=== PATIENT | female | born 1995 | race Caucasian/White ===

== ENCOUNTER 2017-01-26 07:22 | Day surgery (SDC) | payer MEDICAID, OTHER ==
[2017-01-25 10:54] VITALS: BMI 26.2
[~2017-01-26] VITALS: Ht 157.5 cm; Wt 70.0 kg
[2017-01-26] VITALS (14 sets, daily range): BP systolic 8–119; BP diastolic 60–77; PULSE 20–80; RESP 12–20; Ht 157.5 cm; Wt 70.0 kg
[2017-01-26] MEDS ORDERED: INDOMETHACIN 50 MG SUPP PR ONE (08:26)
[2017-01-26] MEDS ORDERED: IOHEXOL 300MG/ML 30 ML BTL ONE (08:26)
[2017-01-26 08:41] LABS: ADD SCAN DIFF NO
[2017-01-26] MEDS ORDERED: MIDAZOLAM 1 MG/ML 2 ML INJ ONE (08:44)
[2017-01-26] MEDS ORDERED: LIDOCAINE 2% (SDV) 5 ML INJ ONE (08:44)
[2017-01-26] MEDS ORDERED: SUCCINYLCHOLINE CHLORIDE 100 MG/5 ML SYG IV ONE (08:44)
[2017-01-26] MEDS ORDERED: FENTAnyl 50 MCG/ML VIAL ONE (08:44)
[2017-01-26] MEDS ORDERED: PROPOFOL 20 ML ONE (08:44)
[2017-01-26 08:45] LABS: BASOPHILS % 0.4 % (0.0-2.0); EOSINOPHILS # 0.2 10^3/ul (0.0-0.5); EOSINOPHILS % 2.5 % (0.0-7.0); HEMATOCRIT 38.5 % (37.0-47.0); HEMOGLOBIN 12.5 g/dl (12.0-16.0); LYMPHOCYTES # 2.4 10^3/ul (0.8-2.9); LYMPHOCYTES % 32.1 % (15.0-51.0); MEAN CORPUSCULAR HEMOGLOBIN 29.6 pg (29.0-33.0); MEAN CORPUSCULAR HGB CONC 32.5 g/dl (32.0-37.0); MONOCYTE # 0.6 10^3/ul (0.3-0.9); MONOCYTES % 7.4 % (0.0-11.0); NEUTROPHIL # 4.3 10^3/ul (1.6-7.5); NEUTROPHILS % 57.3 % (39.0-77.0); PLATELET COUNT 297 10^3/UL (140-415); RED BLOOD COUNT 4.23 10^6/ul (4.20-5.40); RED CELL DISTRIBUTION WIDTH 13.1 % (11.5-14.5); WHITE BLOOD COUNT 7.6 10^3/ul (4.8-10.8)
[2017-01-26 09:11] LABS: ALBUMIN 4.5 g/dl (3.3-4.9); ALBUMIN/GLOBULIN RATIO 1.55; BILIRUBIN,INDIRECT 0.2 mg/dl (0-1.1); BILIRUBIN,TOTAL 0.2 mg/dl (0.2-1.3); INR 0.96; PROTIME 12.8 Sec (12.2-14.2); TOTAL PROTEIN 7.4 g/dl (6.1-8.1)
[2017-01-26 09:12] LABS: PARTIAL THROMBOPLASTIN TIME 30.1 Sec (25.0-35.0)
[2017-01-26 09:15] LABS: CALCIUM 9.4 mg/dl (8.4-10.2); CREATININE 0.77 mg/dl (0.44-1.00); POTASSIUM 4.3 mmol/L (3.5-5.1)
[2017-01-26] MEDS ORDERED: CIPROFLOXACIN 400MG/D5W 200 ML ONE (09:20)
[2017-01-26] MEDS ORDERED: ONDANSETRON 4 MG INJ ONE (09:21)
[2017-01-26] MEDS ORDERED: DEXAMETHASONE 4 MG/ML 1 ML INJ ONE (09:21)
[2017-01-26] MEDS ORDERED: OXYCODONE/ACETAMINOPHEN (5/325) TAB PO PRN (09:30)
[2017-01-26] MEDS ORDERED: MEPERIDINE 25 MG INJ IV PRN (09:30)
[2017-01-26] MEDS ORDERED: morphine (1 MG/ML) 10ML SYRINGE IV PRN ×2 (09:30)
[2017-01-26] MEDS ORDERED: PROCHLORPERAZINE 10 MG INJ IV PRN (09:30)
[2017-01-26] MEDS ORDERED: METOCLOPRAMIDE 10 MG INJ IV PRN (09:30)
[2017-01-26] MEDS ORDERED: FENTAnyl 50 MCG/ML VIAL IV PRN (09:30)
[2017-01-26] MEDS ORDERED: ONDANSETRON 4 MG INJ IV PRN (09:30)
[2017-01-26] MEDS ORDERED: DIPHENHYDRAMINE 50 MG INJ IV PRN (09:30)
--- NOTE | 2017-01-26 16:38 | RADRPT ---
Vent Rate: 59 bpm RR Interval: 0 msec VT Interval: 176 msec QRS Duration: 80 msec QT Interval: 414 msec QTC Interval: 409 msec P-R-T [place]: 58 - 78 - 53 degrees Sinus bradycardia Otherwise normal ECG Electronically Signed By: Abisai Heard [id number]
--- NOTE | 2017-01-27 09:26 | RADRPT ---
PROCEDURE: Intraoperative imaging for ERCP with fluoroscopy. CLINICAL INDICATION: Right upper quadrant pain. Intraoperative. TECHNIQUE: 4 images of the right upper quadrant of the abdomen were obtained in the operating room with an image intensifier. No radiologist was in attendance. 3.7 seconds of fluoroscopy time was used. COMPARISON: No prior study is available for comparison. FINDINGS: Images demonstrate the endoscope in position. Contrast was injected into the common bile duct. Gustavo gical clips are present from previous cholecystectomy. The bile ducts are not dilated. There is no filling defect visualized. The pancreatic duct was not injected. IMPRESSION: 1. ERCP as described above. RPTAT: QQ .John Paul Guillaume MD, MD Date Time Electronically viewed and signed by .John Paul Guillaume MD, on 01/27/2017 09:26 .R/
--- NOTE | 2017-02-03 05:20 | GILP ---
DATE OF PROCEDURE: 01/26/2017 PROCEDURE PERFORMED: ERCP and biopsy of the stomach. PROCEDURE PERFORMED: Nba Reyna MD INDICATION: This is a 21-year-old female undergoing this procedure for removal of a stent. She had a biliary stent placed 4 months ago at another facility after cholecystectomy. The exact reason for the placement of the stent is not clear to the patient or the mother. Besides the patient is complaining of epigastric pain and right upper quadrant pain, so the purpose of this procedure is to evaluate and make sure no stone is left behind. The risks of the procedure and related complications, anesthetic risks and alternatives were discussed and informed consent was obtained. DESCRIPTION OF PROCEDURE: The patient was brought to the GI lab, sedated by Dr. Decker. After optimal sedation the scope was passed into the esophagus which was grossly within normal limits, advanced further down into the stomach. She had a chronic gastritis in the form of strawberry skin appearance. Ampulla was identified. Sphincterotomy seen which had a separate opening compared to pancreatic opening. No stent was seen, so we took an x-ray to make sure the stent had not migrated inside the bile duct. No stent was seen also inside the bile duct. At this point it was decided to do cholangiogram to make sure that no stone is left behind. Cholangiogram was done. The distal part was not filling so used a occlusive balloon and stripped the bile duct multiple times and good occlusive cholangiogram was obtained. It appeared clean. The flow was excellent so the scope was removed with good patient tolerance. The total fluoro time was 3 seconds. Before coming out, we took 2 biopsies from the stomach to rule out H. pylori infection. IMPRESSION: 1. No stent was identified. 2. Good occlusive cholangiogram was obtained. No stone was seen. 3. Chronic gastritis, biopsies obtained. PLAN: Review histopathology, and based on that will treat the patient's symptoms. Dictated By: Nba Reyna MD /[email or web address]/[email or web address] /Document#: [id number]
== END 2017-01-26 11:44 | disposition home or self-care (01) ==
LOC: SDS 07:22
PROVIDERS: ATTEND Internal Medicine Gastroenterology
DX: K29.50 Unspecified chronic gastritis without bleeding (principal)
CPT/HCPCS: 43260; 74330; 80053; 85025; 85610; 85730; 88305; 88312; 93005; J0744; J1100; J2175; J2250; J2405; J3010; J7999; Q9967; Z7512; Z7610